=== PATIENT | female | born 1965 | race Caucasian/White ===

== ENCOUNTER 2018-04-21 00:35 | Emergency (ER) | payer OTHER, MEDICAID ==
[~2018-04-21] VITALS: Ht 157.5 cm; Wt 161.0 kg
[2018-04-21 02:16] LABS: Basophils # (auto) 0.2 uL; Eosinophils # (auto) 0.1 uL; Eosinophils % (auto) 1.3 % (0.0-7.0); Hematocrit 44.6 % (36.0-46.0); Hemoglobin 14.5 g/dL (12.2-16.2); Lymphocytes # (auto) 1.3 uL; Lymphocytes % (auto) 16.2 % (10.0-50.0); Mean Corpuscular Hemoglobin 28.3 pg (28.0-32.0); Mean Corpuscular Hgb Conc. 32.6 g/dL (32.0-36.0); Mean Corpuscular Volume 86.9 fL (80.0-100.0); Monocytes # (auto) 0.4 uL; Monocytes % (auto) 4.6 % (0.0-12.0); Neutrophils % (auto) 75.9 % (37.0-80.0); Platelet Count (auto) 248 10^3/uL (140-450); Red Blood Cells 5.13 10^6/uL (4.0-5.20); Red Cell Distribution Width 15.5 % (11.8-14.3); White Blood Cell 7.9 10^3/uL (4.4-10.8)
[2018-04-21 02:20] LABS: INR 0.93 (0.9-1.15); Partial Thromboplastin Time 30.1 sec (23.78-33.04)
[2018-04-21 02:25] LABS: Albumin 3.3 g/dL (3.4-5.0); BUN/Creatinine Ratio 21.4; Calcium 8.3 mg/dL (8.5-10.1); Potassium 3.8 mmol/L (3.5-5.1)
[2018-04-21 02:27] LABS: Bilirubin, Total 0.3 mg/dL (0.2-1.0); Total Protein 7.7 g/dL (6.4-8.2)
[2018-04-21 08:13] VITALS: BP 113/47
[2018-04-21] MEDS ORDERED: MECLIZINE HCL 25 MG TAB PO ONE (08:30)
== END 2018-04-21 09:26 | disposition home or self-care (01) ==
LOC: ER 00:35 → EDBD 00:35 → ER 09:26
DX: R42 Dizziness and giddiness (principal); G89.29 Other chronic pain; M54.5 Low back pain; F17.210 Nicotine dependence, cigarettes, uncomplicated
CPT/HCPCS: 36415; 70450; 80053; 81002; 85025; 85610; 85730; 93005; 99284; J8597